=== PATIENT | female | born 1950 | race Hispanic/Latino ===

== ENCOUNTER → 2017-08-17 | Outpatient (CLI) | payer MEDICARE, OTHER ==
--- NOTE | 2017-08-17 12:01 | Diagnostic Imaging Report ---
PROCEDURE: CT ABDOMEN AND PELVIS WITHOUT CONTRAST COMPARISON:None. INDICATIONS:Calculus left kidney TECHNIQUE: Stone protocol Volumetric CT abdomen and pelvis. No intravenous or enteric contrast. Multiplanar reformatted images. DLP: 316.34 FINDINGS: Clear lung bases. No pleural effusions. Normal heart size. Liver: Normal Gallbladder: Cholecystectomy Pancreas: Mild diffuse atrophy; otherwise, normal Spleen: Normal Adrenal glands: Right adrenalectomy. Normal left adrenal. Kidneys: Normal. Specifically, no stones. Ureters and urinary bladder: Normal Uterus and adnexa: Hysterectomy Bowel: Normal caliber. Mild sigmoid diverticulosis. Peritoneum: Normal Vasculature: Normal caliber Lymph nodes: Normal Skeleton: Intact. Any pedicular L4, L5 and S1 fusion with L5 laminectomy. Soft tissues: Normal CONCLUSION: 1. No renal stones. 2. Right adrenalectomy. Dictated by: Jose C Lagunas M.D. on 08/17/2017 at 12:10 Electronically approved by: Jose C Lagunas M.D. on 08/17/2017 at 12:10
== END ==
LOC: CT 10:43
PROVIDERS: ATTEND Urology
DX: N20.0 Calculus of kidney (principal); N28.1 Cyst of kidney, acquired; R31.9 Hematuria, unspecified
CPT/HCPCS: 74176